=== PATIENT | male | born 1985 | race Caucasian/White ===

== ENCOUNTER 2016-05-28 13:44 | Emergency (ER) | payer OTHER ==
[~2016-05-28] VITALS: Ht 182.9 cm; Wt 124.7 kg
[~2016-05-28 13:44] MED LIST: ANASPAZ0.125 MG SUBLING; ASPIRIN EC81 M1 PO; ATIVAN1 MG PO; AUGMENTIN 875875 MG PO; BACTRIM DS TAB1 EACH PO; BENTYL 20 MG TA20 M1 PO; BUSPIRONE PO; CARAFATE 1 GM TA1 G1 PO; CIPROFLOXACIN500 M1 PO; COUMADIN 5 MG TA5 M1 PO; ENOXAPARIN120 MG/0.1 SUBQ; HYDROCODON-ACE1 EAC1 PO; LORAZEPAM PO; LORTAB 5 MG/5001 TA1 PO; NASAL SPRAY ORI30 ML; NICOTINE TRANSD14 M1 TD; NOHOMEMEDICATIONS; NORCO 5-325 TA1 EACH PO; PEPCID40 MG PO; PERCOCET 5-3251 EACH PO; PHENERGAN 25 MG25 M1 PO; PHENERGAN 25 MG25 MG PO; PHENERGAN25 M2 PO; PRILOSEC 20 MG20 MG PO; PROAIR HFA8.5 GM IH; PROAIR HFA8.5 GM INH; REGLAN 10 MG TA10 M1 PO; TUMS DUAL ACTI1 EACH PO; ZOFRAN 4 MG ORAL4 M1 DIS; ZOFRAN ODT4 MG PO; ZOFRAN4 MG PO
[2016-05-28] MEDS ORDERED: IBUPROFEN 600600 M1 PO (14:42)
[2016-05-28] MEDS ORDERED: PERCOCET 5-3251 EACH PO (14:42)
[2016-05-28 14:58] VITALS: BP 142/89
== END 2016-05-28 15:00 | disposition home or self-care (01) ==
LOC: ER 13:44
DX: S86.811A Strain of other muscle(s) and tendon(s) at lower leg level, right leg, initial encounter (principal); J45.909 Unspecified asthma, uncomplicated; F17.210 Nicotine dependence, cigarettes, uncomplicated; Z90.89 Acquired absence of other organs; W22.8XXA Striking against or struck by other objects, initial encounter; Y93.89 Activity, other specified; Y92.89 Other specified places as the place of occurrence of the external cause; Y99.9 Unspecified external cause status